=== PATIENT | female | born 1935 | race Caucasian/White ===

== ENCOUNTER → 2017-08-19 | Day surgery (SDC) | payer OTHER ==
[~2017-08-19] MED LIST: ACET650T67 PO; ADVA500A INH; ALBU0.63 NEB; ASPI1TAB73 PO; ATOR40TA16 PO; BUPIVACAINE HCL PF 0.5% 10 ML VIAL INFIL ONE; CALC1TAB87 PO; CARV3.12 PO; COLA100C PO; DENO60P SQ; GABA100C4 PO; IOHEXOL 180 MG/ML 20 ML VIAL (for RAD DIAG) OTHER ONE; ISOS60TA PO; KETOROLAC TROMETHAMINE 30 MG/ML (IVP) VIAL IV PUSH ONE; LACTATED RINGER'S 1000 ML INJ 1,000 ML ONE; LIDOCAINE 1.5%/EPINEPHrine 1:200,000 PF SOLN 30 ML AMP INFIL ONE; MIDAZOLAM HCL 2 MG/2 ML VIAL ONE; MUCU400T2 PO; NITR0.4S SL; OMEP20TA PO; ONDANSETRON HCL 4 MG/2 ML VIAL IV PUSH ONE; PROPOFOL 200 MG/20 ML AMP IV ONE; VENTAER INH; ceFAZolin 2 GM PREMIX 50 ML ONE
--- NOTE | 2017-08-19 17:13 | TN ---
cc: JUAN PARKS DATE OF SURGERY: 08/19/2017. PREOPERATIVE DIAGNOSIS: Compression fracture of L5, subacute. POSTOPERATIVE DIAGNOSIS: Compression fracture of L5, subacute. OPERATIVE PROCEDURE PERFORMED: Kyphoplasty of L5 and placement of bone cement spacer. SURGEON: Juan Parks MD. ANESTHESIA: TIVA. ESTIMATED BLOOD LOSS: Minimal. INDICATIONS FOR THE PROCEDURE: This patient is an 82-year-old female with a subacute fracture at L5 and significant pain. She is having difficulty with ambulation. Despite conservative care, the patient is painful and symptomatic. She presents for surgical treatment. DESCRIPTION OF THE PROCEDURE IN DETAIL: The patient was brought to the operating and given limited sedation. She was rolled to a prone position on a radiolucent table. All pressure points were protected. The back was scrubbed with alcohol followed by Hibiclens followed Chloraprep and draped sterilely. Antibiotics were given within a one hour time window and a time-out was done. AP and lateral radiographic images were used identifying the L5 level and comparing to preoperative studies. A single balloon approach was utilized from the left side using a Kyphon System. Local anesthesia was utilized. A small incision was made and an awl placed down to the pedicle and into the vertebral body at an oblique angle. A 20 mm Kyphon balloon was placed centrally and slightly to the left side. From the right side, a separate approach was utilized using the same technique and placement of a separate cannula. On the back table, methyl methacrylate was mixed and after approximately 12 minutes, it was injected. We had good fill overall without any significant extravasation. No complication was appreciated. The wound was irrigated, anesthetized and closed with 4-0 Vicryl followed by Dermabond. Intraoperative x-rays were obtained. The patient was awakened and taken to the recovery room in satisfactory condition. Juan Parks MD [facility] [place] /4:55 PM /4:59 PM
== END | disposition home or self-care (01) ==
LOC: ESDC 14:58
PROVIDERS: ATTEND Orthopaedic Surgery Orthopaedic Surgery of the Spine
DX: S22.050A Wedge compression fracture of T5-T6 vertebra, initial encounter for closed fracture (principal)
CPT/HCPCS: 01936; 22514; 72100; J0690; J1885; J2250; J2405; J3010; J7120; Q9965